=== PATIENT | male | born 1995 | race Caucasian/White ===

== ENCOUNTER 2017-11-11 14:39 | Emergency (ER) | payer OTHER ==
[2017-11-11 15:03] VITALS: BP 129/78
[2017-11-11] MEDS ORDERED: NACL 0.9% 1000 ML 1,000 ML IV ONE (15:03)
[2017-11-11 15:22] LABS: Basophils # (Auto) 0.1 K/mm3 (0.0-0.1); Eosinophils # (Auto) 0.3 K/mm3 (0.0-0.4); Eosinophils % (Auto) 4.4 % (0.0-4.3); Hematocrit 47.3 % (35.5-45.6); Hemoglobin 16.2 gm/dl (11.8-15.2); Lymphocytes # (Auto) 2.1 K/mm3 (1.2-5.4); Lymphocytes % (Auto) 33.1 % (13.4-35.0); Mean Corpuscular HGB Conc 34 % (32-34); Mean Corpuscular Hemoglobin 31 pg (28-32); Mean Corpuscular Volume 90 fl (84-94); Monocytes # (Auto) 0.5 K/mm3 (0.0-0.8); Monocytes % (Auto) 8.7 % (0.0-7.3); Platelet Count 193 K/mm3 (140-440); Red Blood Count 5.23 M/mm3 (3.65-5.03); Red Cell Distribution Width 13.4 % (13.2-15.2)
[2017-11-11 15:36] LABS: Albumin 4.2 g/dL (3.9-5); BUN/Creatinine Ratio 18; Blood Urea Nitrogen 9 mg/dL (9-20); Calcium 9.1 mg/dL (8.4-10.2); Hemolysis Index 132
[2017-11-11 15:41] LABS: Alanine Aminotransferase 15 units/L (7-56)
[2017-11-11] MEDS ORDERED: TORADOL IV ONE (20:49)
--- NOTE | 2017-11-11 22:32 | Emergency Department Report ---
HPI - General Chief Complaint: Abdominal Pain Time Seen by Provider: 11/11/17 20:22 - HPI HPI: The patient's 22-year-old male who presents for evaluation of abdominal pain. The patient reports 4 days of left lower quadrant abdominal pain, at times pulsating and throbbing in quality, currently mild in severity, exacerbated with bending forward at the waist. He shares that he engages in heavy lifting and shares activity at work. The patient denies fever, chills, night sweats, trauma to the abdomen, nausea, vomiting, hematemesis, diarrhea, blood in the stool, dark tarry stool, dysuria, hematuria, flank pain, genital discharge, inability to pass flatus. He states that he maintains inability to pass bowel movements. ED Past Medical Hx - Past Medical History Previous Medical History?: No - Surgical History Past Surgical History?: Yes Additional Surgical History: "toe surgery" - Social History Smoking Status: Current Every Day Smoker Substance Use Type: Marijuana - Medications Home Medications: Home Medications Medication Instructions Recorded Confirmed Last Taken Type Dicyclomine [Bentyl] 10 mg PO QID PRN #20 capsule 05/12/15 Unknown Rx Hydrocortisone 1% [Hydrocortisone 1 applicatio TP TID #1 tube 05/12/15 Unknown Rx 1% CREAM] Ondansetron [Zofran Odt] 4 mg PO QID PRN #20 tab.rapdis 05/12/15 Unknown Rx Ibuprofen [Motrin] 600 mg PO Q8H PRN #30 tablet 11/11/17 Unknown Rx Magnesium Hydroxide [Milk of 30 ml PO QDAY PRN #1 bottle 11/11/17 Unknown Rx Magnesia] Omeprazole Magnesium [PriLOSEC Otc] 20 mg PO QDAY #14 tablet.dr 11/11/17 Unknown Rx traMADol [Ultram 50 MG tab] 50 mg PO Q6HR PRN #15 tablet 11/11/17 Unknown Rx ED Review of Systems ROS: Stated complaint: LOWER ABD PAIN Other details as noted in HPI Constitutional: denies: fever ENT: denies: throat or neck pain Respiratory: denies: cough, shortness of breath Cardiovascular: denies: chest pain Endocrine: denies unexplained weight loss or gain Gastrointestinal: reports: abdominal pain, nausea Genitourinary: denies: dysuria Musculoskeletal: denies: leg swelling Skin: denies: rash Neurological: denies: headache Hematological/Lymphatic: denies: easy bleeding or easy bruising Psych: denies sadness or hopelessness Physical Exam - Physical Exam Vital Signs: Vital Signs 11/11/17 11/11/17 15:00 20:16 Temperature 98 F Pulse Rate 66 Respiratory 16 18 Rate Blood Pressure 129/78 O2 Sat by Pulse 99 Oximetry Physical Exam: General: well-nourished, well-developed, no acute distress Head: Normocephalic, atraumatic Eyes: normal sclera ENT: Mucous membranes are pale and dry Neck: trachea midline, neck supple, No neck stiffness, no cervical adenopathy Respiratory: Breath sounds equal bilaterally, no wheezing, rales, or rhonchi Cardio: S1 and S2 present, no murmurs, rubs, gallops, capillary refill is delayed Abdomen: Normoactive bowel sounds, soft abdomen, left lower quadrant tenderness to palpation present, no rigidity, no guarding or rebound tenderness Chest WALL/Back: No tenderness to palpation of the chest wall, no CVA tenderness with percussion Musc: No pitting edema Skin: No rash Neuro: no facial drooping, normal speech Psych: Normal affect ED Course Vital Signs 11/11/17 11/11/17 15:00 20:16 Temperature 98 F Pulse Rate 66 Respiratory 16 18 Rate Blood Pressure 129/78 O2 Sat by Pulse 99 Oximetry ED Medical Decision Making - Lab Data Result diagrams: 11/11/17 15:04 11/11/17 15:04 - Medical Decision Making The patient was seen and examined by myself. The patient is placed on a manager cardiac and continuous pulse ox. On initial evaluation, the patient was found to be in no distress. Evaluation orders are placed. IV access is established and the patient is given 1 L normal saline fluid bolus and Zofran for nausea, and IV analgesic for pain. Lab results reveal elevated RBC, hemoglobin, hematocrit, supportive of hemoconcentration and exam findings of dehydration, but otherwise labs are unrevealing including normal WBC, electrolytes, renal function, LFTs. The patient was reevaluated and reported that their symptoms were markedly improved. The patient is stable for discharge with outpatient follow-up. The patient is given follow-up and return instructions. The patient expressed understanding and agreed with the plan. The patient is discharged in stable condition. Critical care attestation.: If time is entered above; I have spent that time in minutes in the direct care of this critically ill patient, excluding procedure time. ED Disposition Clinical Impression: Acute abdominal pain in left lower quadrant, Dehydration Disposition: TO HOME OR SELFCARE Is pt being admited?: No Does the pt Need Aspirin: No Condition: Stable Instructions: Acute Abdominal Pain (ED), Ventral Hernia (ED), Peptic Ulcer (ED) Referrals: LUIS PEDROZA MD [Staff Physician] - 3-5 Days ARCHANA HUGGINS MD [Staff Physician] - 3-5 Days [facility] [Outside] - 3-5 Days Time of Disposition: 20:50 Print Language: SINHALA
== END 2017-11-11 21:32 | disposition home or self-care (01) ==
LOC: ED 14:39
DX: E86.0 Dehydration (principal); F17.200 Nicotine dependence, unspecified, uncomplicated; F12.10 Cannabis abuse, uncomplicated; R10.32 Left lower quadrant pain
CPT/HCPCS: 36415; 80053; 83690; 85025; 96374; 99284; J1885; J7030; 96361; 99283

== ENCOUNTER 2021-04-20 19:22 | Emergency (ER) | payer SELFPAY ==
[2021-04-20] MEDS ORDERED: ACETAMINOPHEN 500 MG TAB PO ONE (20:52)
[2021-04-20] MEDS ORDERED: dexAMETHasone 20 MG/5 ML VIAL IV ONE (20:52)
[2021-04-20 21:18] LABS: Basophils % (Auto) 0.4 % (0.0-1.8); Eosinophils # (Auto) 0.2 K/mm3 (0.0-0.4); Hematocrit 50.8 % (35.5-45.6); Hemoglobin 16.7 gm/dl (11.8-15.2); Lymphocytes # (Auto) 1.8 K/mm3 (1.2-5.4); Lymphocytes % (Auto) 22.5 % (13.4-35.0); Mean Corpuscular HGB Conc 33 % (32-34); Mean Corpuscular Volume 90 fl (84-94); Monocytes # (Auto) 1.2 K/mm3 (0.0-0.8); Monocytes % (Auto) 14.6 % (0.0-7.3); Platelet Count 221 K/mm3 (140-440); Red Blood Count 5.65 M/mm3 (3.65-5.03); Red Cell Distribution Width 14.6 % (13.2-15.2)
[2021-04-20 21:38] LABS: Alanine Aminotransferase 27 units/L (7-56); Albumin 4.6 g/dL (3.9-5); BUN/Creatinine Ratio 17; Blood Urea Nitrogen 15 mg/dL (9-20); Hemolysis Index 37
--- NOTE | 2021-04-20 21:47 | XRay Report ---
CHEST 1 VIEW 04/20/2021 8:37 PM INDICATION / CLINICAL INFORMATION: Covid +, dyspnea, cough. COMPARISON: 04/04/10 FINDINGS: SUPPORT DEVICES: None. HEART / MEDIASTINUM: No significant abnormality. LUNGS / PLEURA: No significant pulmonary or pleural abnormality. No pneumothorax. ADDITIONAL FINDINGS: No significant additional findings. IMPRESSION: 1. No acute findings. Signer Name: Arvind Tejada MD Signed: 04/20/2021 9:42 PM Workstation Name: [id number]
--- NOTE | 2021-04-20 21:54 | Emergency Department Report ---
- General Chief Complaint: Upper Respiratory Infection Stated Complaint: Cough/sob Source: EMS Mode of arrival: Ambulatory Limitations: No Limitations - History of Present Illness Initial Comments: Patient is a 26-year-old male with no past medical history presented to the ED with complaint of acute onset persistent nasal and sinus congestion, frontal sinus pressure and headache, diffuse body aches and pains, nausea, persistent dry cough with pleuritic chest pain and shortness of breath, sore throat and lack of appetite for last 5 days. Patient states that he tested positive for COVID-19 viral infection 2 days ago and that in the last 24 hours his symptoms have worsened such that the shortness of breath is worse with exertion. Patient states that no one else at home has had similar symptoms. Patient denies dizziness, syncope, vomiting, diarrhea, abdominal pain, chest pain, fever, chills, back pain, dysuria, urinary frequency and urgency and testicular pain. MD Complaint: fever, cough, sore throat, rhinorrhea, nasal congestion, sinus pain, other (pleuritic chest pain with cough) -: Sudden, days(s) (5) Severity: severe Severity scale (0 -10): 7 Quality: sharp, aching Consistency: constant Improves With: nothing Worsens With: activity Context: sick contacts Associated Symptoms: denies other symptoms, fever, chills, myalgias, headache, rhinorrhea, nasal congestion, sore throat, cough. denies: diaphoresis, stiff neck, chest pain, shortness of breath, nausea, vomiting, diarrhea, dysuria, rash, confusion, right sweats, weight loss, epistaxis, hoarseness, ear pain Treatments Prior to Arrival: Acetaminophen, "cold medicine" - Related Data Previous Rx's Medication Instructions Recorded Last Taken Type Dicyclomine [Bentyl] 10 mg PO QID PRN #20 capsule 05/12/15 Unknown Rx Hydrocortisone 1% [Hydrocortisone 1 applicatio TP TID #1 tube 05/12/15 Unknown Rx 1% CREAM] Ondansetron [Zofran Odt] 4 mg PO QID PRN #20 tab.rapdis 05/12/15 Unknown Rx Magnesium Hydroxide [Milk of 30 ml PO QDAY PRN #1 bottle 11/11/17 Unknown Rx Magnesia] Omeprazole Magnesium [PriLOSEC Otc] 20 mg PO QDAY #14 tablet. 11/11/17 Unknown Rx traMADoL [Ultram 50 MG tab] 50 mg PO Q6HR PRN #15 tablet 11/11/17 Unknown Rx HYDROcodone/APAP 5-325 [[place] 1 each PO Q6HR PRN #15 tablet 12/06/17 Unknown Rx 5/325] Ibuprofen [Motrin] 800 mg PO Q8HR PRN #20 tablet 12/06/17 Unknown Rx Acetaminophen [Tylenol] 1,000 mg PO Q6HR PRN #30 tablet 04/20/21 Unknown Rx Albuterol Sulfate [Proair 1 - 2 puff IH Q6H PRN #1 inh 04/20/21 Unknown Rx Digihaler] Ascorbic Acid [Vitamin C] 1,000 mg PO Q12H #30 tablet 04/20/21 Unknown Rx Azithromycin [Zithromax Z-JOHN] 250 mg PO DAILY #6 tablet 04/20/21 Unknown Rx Benzonatate [Tessalon Perles] 100 mg PO Q8HR #30 capsule 04/20/21 Unknown Rx Cetirizine HCl [Zyrtec 10mg tab] 10 mg PO DAILY #30 tablet 04/20/21 Unknown Rx Ondansetron [Zofran Odt] 4 mg PO Q6HR PRN #20 tab.rapdis 04/20/21 Unknown Rx Allergies Allergy/AdvReac Type Severity Reaction Status Date / Time No Known Allergies Allergy Unverified 08/16/14 17:39 ED Review of Systems ROS: Stated complaint: Cough/sob Other details as noted in HPI Constitutional: denies: chills, fever Eyes: denies: eye pain, eye discharge, vision change ENT: throat pain, congestion. denies: ear pain Respiratory: cough, shortness of breath, wheezing Cardiovascular: denies: chest pain, palpitations, dyspnea on exertion, edema, syncope Endocrine: no symptoms reported. denies: excessive sweating Gastrointestinal: nausea, vomiting. denies: abdominal pain, diarrhea, constipation, hematemesis, melena, hematochezia Genitourinary: denies: urgency, dysuria, frequency, hematuria, testicular pain, testicular mass Musculoskeletal: denies: back pain, joint swelling, arthralgia Skin: denies: rash, lesions, change in color, change in hair/nails Neurological: headache. denies: weakness, numbness, paresthesias Psychiatric: denies: anxiety, depression Hematological/Lymphatic: denies: easy bleeding, easy bruising ED Past Medical Hx - Past Medical History Previous Medical History?: No - Surgical History Past Surgical History?: No Additional Surgical History: "toe surgery" - Social History Smoking Status: Never Smoker - Medications Home Medications: Home Medications Medication Instructions Recorded Confirmed Last Taken Type Dicyclomine [Bentyl] 10 mg PO QID PRN #20 capsule 05/12/15 Unknown Rx Hydrocortisone 1% [Hydrocortisone 1 applicatio TP TID #1 tube 05/12/15 Unknown Rx 1% CREAM] Ondansetron [Zofran Odt] 4 mg PO QID PRN #20 tab.rapdis 05/12/15 Unknown Rx Magnesium Hydroxide [Milk of 30 ml PO QDAY PRN #1 bottle 11/11/17 Unknown Rx Magnesia] Omeprazole Magnesium [PriLOSEC Otc] 20 mg PO QDAY #14 tablet. 11/11/17 Unknown Rx traMADoL [Ultram 50 MG tab] 50 mg PO Q6HR PRN #15 tablet 11/11/17 Unknown Rx HYDROcodone/APAP 5-325 [[place] 1 each PO Q6HR PRN #15 tablet 12/06/17 Unknown Rx 5/325] Ibuprofen [Motrin] 800 mg PO Q8HR PRN #20 tablet 12/06/17 Unknown Rx Acetaminophen [Tylenol] 1,000 mg PO Q6HR PRN #30 tablet 04/20/21 Unknown Rx Albuterol Sulfate [Proair 1 - 2 puff IH Q6H PRN #1 inh 04/20/21 Unknown Rx Digihaler] Ascorbic Acid [Vitamin C] 1,000 mg PO Q12H #30 tablet 04/20/21 Unknown Rx Azithromycin [Zithromax Z-JOHN] 250 mg PO DAILY #6 tablet 04/20/21 Unknown Rx Benzonatate [Tessalon Perles] 100 mg PO Q8HR #30 capsule 04/20/21 Unknown Rx Cetirizine HCl [Zyrtec 10mg tab] 10 mg PO DAILY #30 tablet 04/20/21 Unknown Rx Ondansetron [Zofran Odt] 4 mg PO Q6HR PRN #20 tab.rapdis 04/20/21 Unknown Rx ED Physical Exam - General Limitations: No Limitations General appearance: alert, in no apparent distress - Head Head exam: Present: atraumatic, normocephalic, normal inspection - Eye Eye exam: Present: normal appearance, PERRL, EOMI Pupils: Present: normal accommodation - ENT ENT exam: Present: mucous membranes moist, TM's normal bilaterally, normal external ear exam, other (Mild erythematous oropharynx) - Neck Neck exam: Present: normal inspection, full ROM. Absent: tenderness, m eningismus - Respiratory Respiratory exam: Present: wheezes (Mild diffuse coarse wheezes throughout). Absent: respiratory distress, rales, rhonchi, stridor, chest wall tenderness, accessory muscle use, decreased breath sounds - Cardiovascular Cardiovascular Exam: Present: regular rate, normal rhythm, normal heart sounds. Absent: systolic murmur, diastolic murmur, rubs, gallop - GI/Abdominal GI/Abdominal exam: Present: soft, normal bowel sounds. Absent: tenderness, guarding, rebound, hyperactive bowel sounds, hypoactive bowel sounds, organomegaly, bruit - Extremities Exam Extremities exam: Present: normal inspection, full ROM, normal capillary refill - Back Exam Back exam: Present: normal inspection, full ROM. Absent: tenderness, CVA tenderness (R), CVA tenderness (L), muscle spasm, paraspinal tenderness, vertebral tenderness - Neurological Exam Neurological exam: Present: alert, oriented X3, CN II-XII intact, normal gait, reflexes normal - Psychiatric Psychiatric exam: Present: normal affect, normal mood - Skin Skin exam: Present: warm, dry, intact, normal color. Absent: rash ED Course Vital Signs 04/20/21 04/20/21 19:25 21:48 Temperature 99.1 F Pulse Rate 100 H Respiratory 18 18 Rate Blood Pressure 157/90 [Right] O2 Sat by Pulse 98 Oximetry ED Medical Decision Making - Lab Data Result diagrams: 04/20/21 20:58 04/20/21 20:58 - Radiology Data Radiology results: report reviewed, image reviewed [facility] [address] [place] [address] XRay Report Signed Patient: FRANTZ GRAF MR#: [id number] : 1995 Acct:[id number] Age/Sex: 26 / M A DM Date: 04/20/21 Loc: ED Attending Dr: Ordering Physician: COURTNEY BLACK Date of Service: 04/20/21 Procedure(s): XR chest 1V ap Accession Number(s): [id number] cc: COURTNEY BLACK Fluoro Time In Minutes: CHEST 1 VIEW 04/20/2021 8:37 PM INDICATION / CLINICAL INFORMATION: Covid +, dyspnea, cough. COMPARISON: 04/04/10 FINDINGS: SUPPORT DEVICES: None. HEART / MEDIASTINUM: No significant abnormality. LUNGS / PLEURA: No significant pulmonary or pleural abnormality. No pneumothorax. ADDITIONAL FINDINGS: No significant additional findings. IMPRESSION: 1. No acute findings. Signer Name: Arvind Tejada MD Signed: 04/20/2021 9:42 PM Workstation Name: [id number] Transcribed By: DT Dictated By: Andres Tejada MD Electronically Authenticated By: Andres Tejada MD Signed Date/Time: 04/20/212141 DD/ 37 TD/TT: - Medical Decision Making This is a 26-year-old male with no past medical history presented to the ED with complaint of acute onset persistent nasal and sinus congestion, frontal sinus pressure and headache, diffuse body aches and pains, nausea, persistent dry cough with pleuritic chest pain and shortness of breath, sore throat and lack of appetite for last 5 days. Patient states that he tested positive for COVID-19 viral infection 2 days ago and that in the last 24 hours his symptoms have worsened such that the shortness of breath is worse with exertion. Patient states that no one else at home has had similar symptoms. In the ED, patient is alert and oriented x3 and is not in any distress. Patient was treated for pain in the ED and also given antiemetics. Chest x-ray showed no acute cardiopulmonary abnormalities or pneumonitis. All lab test results were reviewed and are all nonactionable. Patient was advised to take medications at home and to continue to self quarantine for 10 days, and to follow-up with his primary care physician after this quarantine is over, or return to the ED immediately if symptoms get worse. - Differential Diagnosis Covid-19; URI; Sinusitis; Pneumonia; Pharyngitis Critical care attestation.: If time is entered above; I have spent that time in minutes in the direct care of this critically ill patient, excluding procedure time. ED Disposition Clinical Impression: Upper respiratory tract infection due to 2019 novel coronavirus, Acute bronchitis due to COVID-19 virus, Dyspnea due to COVID-19 Acute pharyngitis Qualifiers: Pharyngitis/tonsillitis etiology: unspecified etiology Qualified Code(s): J02.9 - Acute pharyngitis, unspecified Disposition: 01 HOME / SELF CARE / HOMELESS Is pt being admited?: No Does the pt Need Aspirin: No Condition: Stable Instructions: Acute Bronchitis (ED), Shortness of Breath, Adult, [id number], Acute Bronchitis, Adult, [id number], COVID-19 Frequently Asked Questions, Upper Respiratory Infection, Adult, [id number], COVID-19: How to Protect Yourself and Others - CDC, Pharyngitis, [id number] Additional Instructions: Todos los resultados de las pruebas de laboratorio fueron revisados ??y todos no son viables. Asegrese de ponerse en cuarentena en casa ria [address] co[address] debido a los recientes resultados positivos de cowan prueba COVID-19. Por lo tanto, tome los medicamentos con alimentos, anthony muchos lquidos y vince un seguimiento con cowan mdico de atencin primaria en 14 cox para tayla reevaluacin. Regrese al servicio de urgencias de inmediato si los sntomas empeoran. Prescriptions: Acetaminophen [Tylenol] 1,000 mg PO Q6HR PRN #30 tablet PRN Reason: Pain or fever Albuterol Sulfate [Proair Digihaler] 1 - 2 puff IH Q6H PRN #1 inh PRN Reason: Shortness Of Breath Benzonatate [Tessalon Perles] 100 mg PO Q8HR #30 capsule Ascorbic Acid [Vitamin C] 1,000 mg PO Q12H #30 tablet Azithromycin [Zithromax Z-JOHN] 250 mg PO DAILY #6 tablet Ondansetron [Zofran Odt] 4 mg PO Q6HR PRN #20 tab.rapdis PRN Reason: Nausea Cetirizine HCl [Zyrtec 10mg tab] 10 mg PO DAILY #30 tablet Referrals: [facility] [Provider Group] - 7-10 days Time of Disposition: 21:56 Print Language: JAPANESE
[2021-04-20 22:55] VITALS: BP 139/87
== END 2021-04-20 23:05 | disposition home or self-care (01) ==
LOC: ED 19:22
DX: J06.9 Acute upper respiratory infection, unspecified (principal); U07.1 COVID-19; J20.8 Acute bronchitis due to other specified organisms
CPT/HCPCS: 36415; 71045; 80053; 85025; 96374; 99284; J1100

== ENCOUNTER 2021-09-20 12:52 | Emergency (ER) | payer SELFPAY ==
[2021-09-20] MEDS ORDERED: CYCLOBENZAPRINE 10 MG TAB PO ONE (15:21)
[2021-09-20] MEDS ORDERED: IBUPROFEN 800 MG TAB PO ONE (15:21)
[2021-09-20] MEDS ORDERED: dexAMETHasone 4 MG/ML VIAL IM ONE (15:21)
--- NOTE | 2021-09-20 15:22 | Emergency Department Report ---
ED Back Pain/Injury HPI - General Chief Complaint: Back Pain/Injury Stated Complaint: LOWER BACK PAIN Time Seen by Provider: 09/20/21 15:21 Source: patient Limitations: No Limitations - Related Data Previous Rx's Medication Instructions Recorded Last Taken Type Dicyclomine [Bentyl] 10 mg PO QID PRN #20 capsule 05/12/15 Unknown Rx Hydrocortisone 1% [Hydrocortisone 1 applicatio TP TID #1 tube 05/12/15 Unknown Rx 1% CREAM] Ondansetron [Zofran Odt] 4 mg PO QID PRN #20 tab.rapdis 05/12/15 Unknown Rx Magnesium Hydroxide [Milk of 30 ml PO QDAY PRN #1 bottle 11/11/17 Unknown Rx Magnesia] Omeprazole Magnesium [PriLOSEC Otc] 20 mg PO QDAY #14 tablet.dr 11/11/17 Unknown Rx traMADoL [Ultram 50 MG tab] 50 mg PO Q6HR PRN #15 tablet 11/11/17 Unknown Rx HYDROcodone/APAP 5-325 [[place] 1 each PO Q6HR PRN #15 tablet 12/06/17 Unknown Rx 5/325] Ibuprofen [Motrin] 800 mg PO Q8HR PRN #20 tablet 12/06/17 Unknown Rx Acetaminophen [Tylenol] 1,000 mg PO Q6HR PRN #30 tablet 04/20/21 Unknown Rx Albuterol Sulfate [Proair 1 - 2 puff IH Q6H PRN #1 inh 04/20/21 Unknown Rx Digihaler] Ascorbic Acid [Vitamin C] 1,000 mg PO Q12H #30 tablet 04/20/21 Unknown Rx Azithromycin [Zithromax Z-JOHN] 250 mg PO DAILY #6 tablet 04/20/21 Unknown Rx Benzonatate [Tessalon Perles] 100 mg PO Q8HR #30 capsule 04/20/21 Unknown Rx Cetirizine HCl [Zyrtec 10mg tab] 10 mg PO DAILY #30 tablet 04/20/21 Unknown Rx Ondansetron [Zofran Odt] 4 mg PO Q6HR PRN #20 tab.rapdis 04/20/21 Unknown Rx Cyclobenzaprine [Flexeril] 10 mg PO TID PRN #10 tablet 09/20/21 Unknown Rx Ibuprofen [Motrin] 800 mg PO Q8HR PRN #30 tablet 09/20/21 Unknown Rx Allergies Allergy/AdvReac Type Severity Reaction Status Date / Time No Known Allergies Allergy Verified 09/20/21 16:01 ED Review of Systems ROS: Stated complaint: LOWER BACK PAIN Other details as noted in HPI Comment: All other systems reviewed and negative ED Past Medical Hx - Past Medical History Previous Medical History?: Yes Additional medical history: chronic back pain - Surgical History Past Surgical History?: Yes Additional Surgical History: "toe surgery" - Social History Smoking Status: Never Smoker - Medications Home Medications: Home Medications Medication Instructions Recorded Confirmed Last Taken Type Dicyclomine [Bentyl] 10 mg PO QID PRN #20 capsule 05/12/15 Unknown Rx Hydrocortisone 1% [Hydrocortisone 1 applicatio TP TID #1 tube 05/12/15 Unknown Rx 1% CREAM] Ondansetron [Zofran Odt] 4 mg PO QID PRN #20 tab.rapdis 05/12/15 Unknown Rx Magnesium Hydroxide [Milk of 30 ml PO QDAY PRN #1 bottle 11/11/17 Unknown Rx Magnesia] Omeprazole Magnesium [PriLOSEC Otc] 20 mg PO QDAY #14 tablet.dr 11/11/17 Unknown Rx traMADoL [Ultram 50 MG tab] 50 mg PO Q6HR PRN #15 tablet 11/11/17 Unknown Rx HYDROcodone/APAP 5-325 [[place] 1 each PO Q6HR PRN #15 tablet 12/06/17 Unknown Rx 5/325] Ibuprofen [Motrin] 800 mg PO Q8HR PRN #20 tablet 12/06/17 Unknown Rx Acetaminophen [Tylenol] 1,000 mg PO Q6HR PRN #30 tablet 04/20/21 Unknown Rx Albuterol Sulfate [Proair 1 - 2 puff IH Q6H PRN #1 inh 04/20/21 Unknown Rx Digihaler] Ascorbic Acid [Vitamin C] 1,000 mg PO Q12H #30 tablet 04/20/21 Unknown Rx Azithromycin [Zithromax Z-JOHN] 250 mg PO DAILY #6 tablet 04/20/21 Unknown Rx Benzonatate [Tessalon Perles] 100 mg PO Q8HR #30 capsule 04/20/21 Unknown Rx Cetirizine HCl [Zyrtec 10mg tab] 10 mg PO DAILY #30 tablet 04/20/21 Unknown Rx Ondansetron [Zofran Odt] 4 mg PO Q6HR PRN #20 tab.rapdis 04/20/21 Unknown Rx Cyclobenzaprine [Flexeril] 10 mg PO TID PRN #10 tablet 09/20/21 Unknown Rx Ibuprofen [Motrin] 800 mg PO Q8HR PRN #30 tablet 09/20/21 Unknown Rx ED Physical Exam - General Limitations: No Limitations General appearance: alert, in no apparent distress - Head Head exam: Present: atraumatic, normocephalic - Eye Eye exam: Present: normal appearance - ENT ENT exam: Present: mucous membranes moist - Neck Neck exam: Present: normal inspection - Respiratory Respiratory exam: Present: normal lung sounds bilaterally. Absent: respiratory distress - Cardiovascular Cardiovascular Exam: Present: regular rate, normal rhythm. Absent: systolic murmur, diastolic murmur, rubs, gallop - GI/Abdominal GI/Abdominal exam: Present: soft, normal bowel sounds - Rectal Rectal exam: Present: deferred - Extremities Exam Extremities exam: Present: normal inspection - Back Exam Back exam: Present: normal inspection - Neurological Exam Neurological exam: Present: alert, oriented X3 - Psychiatric Psychiatric exam: Present: normal affect, normal mood - Skin Skin exam: Present: warm, dry, intact, normal color. Absent: rash ED Course Vital Signs 09/20/21 09/20/21 13:58 15:45 Temperature 98.1 F 97.9 F Pulse Rate 67 73 Respiratory 18 18 Rate Blood Pressure 130/81 136/89 [Right] O2 Sat by Pulse 97 100 Oximetry ED Medical Decision Making - Medical Decision Making Vital Signs (72 hours) 09/20/21 09/20/21 13:58 15:45 Temperature 98.1 F 97.9 F Pulse Rate 67 73 Respiratory 18 18 Rate Blood Pressure 130/81 136/89 [Right] O2 Sat by Pulse 97 100 Oximetry No signs and symptoms cauda equina. Patient ambulatory to fast track. - Differential Diagnosis Acute on chronic back pain Critical care attestation.: If time is entered above; I have spent that time in minutes in the direct care of this critically ill patient, excluding procedure time. ED Disposition Clinical Impression: Acute exacerbation of chronic low back pain Disposition: HOME / SELF CARE / HOMELESS Is pt being admited?: No Does the pt Need Aspirin: No Condition: Stable Instructions: Acute Back Pain, Adult Additional Instructions: Medications as ordered today for pain. Follow-up with orthopedics as soon as possible for definitive care. Have given you referral below. Referrals: CEE TAYLOR MD [Staff Physician] - 3-5 Days EUNICE TONEY MD [Staff Physician] - 3-5 Days Time of Disposition: 15:56
[2021-09-20 15:46] VITALS: BP 136/89
== END 2021-09-20 16:23 | disposition home or self-care (01) ==
LOC: ED 12:52
DX: M54.50 Low back pain, unspecified (principal); G89.29 Other chronic pain; Z79.899 Other long term (current) drug therapy
CPT/HCPCS: 96372; 99282; J1100

== ENCOUNTER 2021-11-07 07:17 | Emergency (ER) | payer SELFPAY ==
[2021-11-07 07:25] VITALS: BP 134/78
== END 2021-11-07 19:29 | disposition left against medical advice (07) ==
LOC: ED 07:17
DX: H02.846 Edema of left eye, unspecified eyelid (principal); Z53.21 Procedure and treatment not carried out due to patient leaving prior to being seen by health care provider